=== PATIENT | male | born 1975 | race Caucasian/White ===

== ENCOUNTER 2016-12-15 07:27 | Emergency (ER) | payer MEDICAID, OTHER ==
[~2016-12-15] VITALS: Wt 100.0 kg
[2016-12-15] MEDS ORDERED: CYCL-319 PO (07:58)
[2016-12-15] MEDS ORDERED: PSEU30TA38 PO (07:58)
[2016-12-15] MEDS ORDERED: BENZ100C70 PO (07:58)
[2016-12-15] MEDS ORDERED: FLUT9.9S NASAL (07:58)
[2016-12-15] MEDS ORDERED: PROM5SYR2 PO (07:58)
[2016-12-15 08:08] VITALS: BP 132/86; PULSE 68; RESP 16; TEMP 98.1
--- NOTE | 2016-12-15 11:50 | ERD ---
DATE OF SERVICE: 12/15/2016 HISTORY OF PRESENT ILLNESS: The patient is a 41-year-old male complaining of cough and runny nose f or the last few days. Patient states that he has had a dry cough. No fevers, no diarrhea. He has had no hemoptysis, no pleuritic chest pain, no shortness of breath. Denies any sick contacts. Lakisha ent states that he was diagnosed 2 weeks ago with torticollis in [place]. He has been taking Valium, which has alleviated his symptoms. However, patient continues to have some mild neck stiffness. PAST MEDICAL HISTORY: Denies medical problems. ALLERGIES: DENIES ALLERGIES TO MEDICATIONS. SOCIAL HISTORY: Denies. REVIEW OF SYSTEMS: A 12-point review of systems was done. Refer to HPI for positives, all other sy stems negative. PHYSICAL EXAMINATION: VITAL SIGNS: Temperature is 97.5, pulse 53, blood pressure 142/80, respiratory rate 20, O2 saturati on 98% on room air. Pain intensity is 0/10. GENERAL: The patient is well-appearing, well-nourished, no acute distress. HEENT: Atraumatic. Conjunctivae are pink. Pupils equal, round, and reactive to light. There is no s cleral icterus. Tympanic membranes clear bilaterally. Oropharynx clear. No nystagmus or photophobia . NECK: The patient has mild tenderness to palpation over the left trapezius, but has full range of m otion of the left neck. There is no midline cervical tenderness or step-off. CHEST: Clear to auscultation bilaterally. There are no rales, wheezes or rhonchi. HEART: Regular rate and rhythm. No murmurs, clicks, rubs or gallops. No S3 or S4. ABDOMEN: Soft, nontender and nondistended. Good bowel sounds. No rebound or guarding. No gross gray tonitis. No gross organomegaly or masses. No Delaney sign or McBurney point tenderness. SKIN: There is no apparent rash or petechia. The skin is warm and dry. DIAGNOSES: 1. Cough. 2. Torticollis, improving. DISCHARGE: The patient is discharged stable. Patient given prescription for Flexeril, Flonase, pro methazine with codeine, Sudafed and Tessalon, told to follow up with primary care within 1 to 2 days for reevaluation. Patient was told if symptoms progress or worsen to return to the ER. All other questions answered at time of discharge. Discharge summary given at the time of departure. Patient understood and complied with plan. Dictated By: VILMA ARCEO for JEANNINE DE PAZ/JAZZMINE Conf#: [id number] DID#: [id number]
== END 2016-12-15 08:05 | disposition home or self-care (01) ==
LOC: FTE 07:27
DX: R05 Cough (principal); M43.6 Torticollis
CPT/HCPCS: 99284

== ENCOUNTER 2017-06-17 02:11 | Emergency (ER) | payer SELFPAY ==
[~2017-06-17] VITALS: Ht 177.8 cm; Wt 104.0 kg
[~2017-06-17 02:11] MED LIST: BENZ100C70 PO; CYCL-319 PO; FLUT9.9S NASAL; PROM5SYR2 PO; PSEU30TA38 PO
[2017-06-17 02:15] VITALS: Ht 177.8 cm; Wt 104.0 kg
== END 2017-06-17 05:13 | disposition left against medical advice (07) ==
LOC: FTE 02:11
DX: Z53.21 Procedure and treatment not carried out due to patient leaving prior to being seen by health care provider (principal)